=== PATIENT | female | born 1995 | race Caucasian/White ===

== ENCOUNTER 2022-12-23 15:55 | Emergency (ER) | payer OTHER ==
[~2022-12-23] VITALS: Ht 162.6 cm; Wt 72.6 kg
[2022-12-23 16:00] VITALS: BP_SYST 116; PULSE 72; RESP 18; TEMP 97.7; O2SAT 98
== END 2022-12-23 19:25 | disposition left against medical advice (07) ==
LOC: SED 15:55
DX: R55 Syncope and collapse (principal); Z53.21 Procedure and treatment not carried out due to patient leaving prior to being seen by health care provider
CPT/HCPCS: 99281